=== PATIENT | male | born 1995 | race Two or more races ===

== ENCOUNTER 2018-08-29 23:48 | Emergency (ER) | payer OTHER ==
[~2018-08-29] VITALS: Ht 185.4 cm; Wt 90.0 kg
[2018-08-29 23:49] VITALS: BP 148/67
[2018-08-30] MEDS ORDERED: LIDOCAINE-MPF 2% ,5ML INFIL ONE (00:30)
[2018-08-30] MEDS ORDERED: LIDOCAINE-MPF 2% ,5ML ONE (00:34)
[2018-08-30] MEDS ORDERED: DIPH,PERTUSS(ACELL),TET VAC/PF 0.5 ML IM-VACC ONE ×2 (01:21→01:30)
== END 2018-08-30 01:41 | disposition home or self-care (01) ==
LOC: ED 08-30 01:36
DX: S01.01XA Laceration without foreign body of scalp, initial encounter (principal); W22.8XXA Striking against or struck by other objects, initial encounter; Y93.89 Activity, other specified; Y92.89 Other specified places as the place of occurrence of the external cause; Y99.8 Other external cause status
CPT/HCPCS: 12031; 90471; 90715